=== PATIENT | female | born 1945 | race Hispanic/Latino ===

== ENCOUNTER 2018-01-12 18:32 | Inpatient (IN) | payer OTHER, MEDICARE ==
[~2018-01-12] VITALS: Ht 154.9 cm; Wt 75.2 kg
[2018-01-12] MEDS ORDERED: EPINEPHRINE 1 MG/ML AMPULE ONE ×2 (18:38→18:41)
[2018-01-12] MEDS ORDERED: METHYLPREDNISOLONE SOD SUCC 125MG/2ML VIAL ONE (18:42)
[2018-01-12 18:52] LABS: BASOPHILS % (AUTO) 0.4 % (0.0-5.0); EOSINOPHILS % (AUTO) 0.9 % (0.0-8.0); HEMATOCRIT 43.3 % (36-48); LYMPHOCYTES % (AUTO) 19.9 % (21.0-51.0); MEAN CORPUSCULAR HEMOGLOBIN 31.7 pg (27.0-33.0); MEAN CORPUSCULAR HGB CONC 34.1 g/dL (32.0-36.0); MONOCYTES % (AUTO) 3.2 % (3.0-13.0); NEUTROPHILS % (AUTO) 75.6 % (40.0-77.0); PLATELET COUNT (AUTO) 329 K/uL (130-400); RED BLOOD CELL COUNT(AUTO) 4.66 MIL/uL (4.00-5.50); RED CELL DISTRIBUTION WIDTH 14.1 % (11.0-15.5); WHITE BLOOD COUNT (AUTO) 11.7 K/uL (4.8-10.8)
[2018-01-12 19:07] LABS: CARBON DIOXIDE 24 mmol/L (21-32); CHLORIDE 101 mmol/L (101-111); CREATININE 1.2 mg/dL (0.5-1.5); GLOMERULAR FILTR. RATE CALC 47 mL/min (>60); GLUCOSE,RANDOM 122 mg/dL (70-105); POTASSIUM 4.2 mmol/L (3.5-5.1); SODIUM SERUM 137 mmol/L (136-145); UREA NITROGEN, BLOOD 22 mg/dL (7-18)
[2018-01-12 19:22] LABS: ALANINE AMINOTRANSFERASE 21 U/L (12-78); ALBUMIN 3.7 g/dL (3.5-5.0); ASPARTATE AMINOTRANSFERASE 28 U/L (10-37); BILIRUBIN,TOTAL 0.7 mg/dL (0.2-1.0); CREATINE KINASE MB 1.3 ng/mL (0.5-3.6); MYOGLOBIN 37 ng/mL (10-92); TOTAL PROTEIN, SERUM 7.2 g/dL (6.0-8.3); TROPONIN I < 0.04 ng/mL (0.00-0.06)
[2018-01-12 19:31] LABS: CREATINE KINASE, TOTAL 432 U/L (21-232)
[2018-01-12 19:35] LABS: INR 0.95 (0.85-1.15); PARTIAL THROMBOPLASTIN TIME 21.7 SEC (26.3-35.5)
[2018-01-12 19:42] LABS: APPEARANCE,URINE CLEAR (CLEAR); BILIRUBIN,URINE NEGATIVE (NEGATIVE); COLOR,URINE YELLOW (YELLOW); GLUCOSE, URINE (UA) NEGATIVE (NEGATIVE); KETONES,URINE 5 mg/dL (NEGATIVE); LEUKOCYTE ESTERASE ,URINE NEGATIVE (NEGATIVE); NITRATE,URINE NEGATIVE (NEGATIVE); OCCULT BLOOD,URINE NEGATIVE (NEGATIVE); PH,URINE 5.5 (5.0-8.0); PROTEIN,URINE NEGATIVE (NEGATIVE); UROBILINOGEN,URINE 0.2 mg/dL (0.2-1.0)
[2018-01-12] MEDS ORDERED: HYDROXYZINE HCL 25 MG TABLET ONE (19:58)
[2018-01-12 20:03] LABS: RAPID GROUP A STREP NEGATIVE (NEGATIVE)
[2018-01-12] MEDS ORDERED: FAMOTIDINE/PF 20 MG/2 ML VIAL IV ONE (21:03)
[2018-01-12 22:35] VITALS: BP 147/71
[2018-01-12] MEDS ORDERED: CALC-1105 PO (22:44)
[2018-01-12] MEDS ORDERED: LISI10TA7 PO (22:44)
[2018-01-12] MEDS ORDERED: OXYB5TAB10 PO (22:44)
[2018-01-12] MEDS ORDERED: CALC-21 PO (22:44)
[2018-01-12] MEDS ORDERED: ASPI-555 PO (22:44)
[2018-01-12] MEDS ORDERED: CEPH500C2 PO (22:48)
[2018-01-12] MEDS ORDERED: SULF1TAB89 PO (22:48)
[2018-01-12] MEDS ORDERED: METF500T6 PO (23:21)
[2018-01-12] MEDS ORDERED: ATOR40TA69 PO (23:21)
[2018-01-12] MEDS ORDERED: PANT40TA25 PO (23:21)
[2018-01-13 03:55] VITALS: BP 126/62
[2018-01-13] MEDS ORDERED: SODIUM CHLORIDE 0.9% 1000ML 1,000 ML IV SCH (04:15)
[2018-01-13] MEDS ORDERED: ONDANSETRON HCL MDV 20ML 2 MG/ML VIAL IVP PRN (04:15)
[2018-01-13] MEDS ORDERED: GLUCAGON 1MG KIT 1 MG ML IM PRN (04:15)
[2018-01-13] MEDS ORDERED: DEXTROSE 50%-WATER 50 ML DISP.SYRIN IV PRN (04:15)
[2018-01-13 05:08] LABS: BASOPHILS % (AUTO) 0.2 % (0.0-5.0); EOSINOPHILS % (AUTO) 0.1 % (0.0-8.0); HEMATOCRIT 35.5 % (36-48); LYMPHOCYTES % (AUTO) 11.2 % (21.0-51.0); MEAN CORPUSCULAR HEMOGLOBIN 32.9 pg (27.0-33.0); MEAN CORPUSCULAR HGB CONC 34.7 g/dL (32.0-36.0); MEAN CORPUSCULAR VOLUME 94.6 fL (79-99); MONOCYTES % (AUTO) 0.8 % (3.0-13.0); NEUTROPHILS % (AUTO) 87.7 % (40.0-77.0); PLATELET COUNT (AUTO) 279 K/uL (130-400); RED BLOOD CELL COUNT(AUTO) 3.76 MIL/uL (4.00-5.50); RED CELL DISTRIBUTION WIDTH 14.3 % (11.0-15.5); WHITE BLOOD COUNT (AUTO) 9.4 K/uL (4.8-10.8)
[2018-01-13 05:23] LABS: ALBUMIN 2.9 g/dL (3.5-5.0); BILIRUBIN,TOTAL 0.8 mg/dL (0.2-1.0); CREATININE 0.8 mg/dL (0.5-1.5); POTASSIUM 4.3 mmol/L (3.5-5.1); TOTAL PROTEIN, SERUM 6.1 g/dL (6.0-8.3)
[2018-01-13] MEDS: INSULIN R PO SS1 SQ SCH ×4 (06:11→21:00)
[2018-01-13] MEDS: PANTOPRAZOLE SODIUM 40 MG TABLET.DR PO SCH (06:18)
[2018-01-13] MEDS ORDERED: PNEUMOCOCCAL VACCINE POLYVALENT 0.5 ML/VIAL [PPV] IM SCH (07:00)
[2018-01-13] MEDS: METFORMIN HCL 500 MG TABLET PO SCH (08:00)
[2018-01-13 08:05] VITALS: BP 121/66
[2018-01-13] MEDS ORDERED: SULFAMETHOX-TMP DS 800/160 TAB PO SCH (09:00)
[2018-01-13] MEDS: ASPIRIN 81 MG EC TAB PO SCH (10:22)
[2018-01-13] MEDS: CALCIUM 600 + VITAMIN D 400 TABLET PO SCH (10:22)
[2018-01-13] MEDS: OXYBUTYNIN CHLORIDE 5 MG TABLET PO SCH ×2 (10:23→21:24)
[2018-01-13] MEDS: LISINOPRIL 10 MG TABLET PO SCH (10:24)
[2018-01-13 11:56] VITALS: BP 124/71
[2018-01-13 16:23] VITALS: BP 117/70
[2018-01-13 19:00] VITALS: BP 130/66
[2018-01-13] MEDS ORDERED: DIPHENHYDRAMINE HCL 25 MG CAPSULE PO PRN (22:15)
[2018-01-13 23:00] VITALS: BP 127/78
[2018-01-14 03:00] VITALS: BP 104/59
[2018-01-14] MEDS: INSULIN R PO SS1 SQ SCH ×4 (06:32→20:54)
[2018-01-14] MEDS: PANTOPRAZOLE SODIUM 40 MG TABLET.DR PO SCH (06:44)
[2018-01-14 07:00] VITALS: BP 122/69
[2018-01-14] MEDS: METFORMIN HCL 500 MG TABLET PO SCH (08:34)
[2018-01-14] MEDS: METHYLPREDNISOLONE SOD SUCC 125MG/2ML VIAL IVP SCH ×2 (08:34→17:05)
[2018-01-14] MEDS: ASPIRIN 81 MG EC TAB PO SCH (08:34)
[2018-01-14] MEDS: CALCIUM 600 + VITAMIN D 400 TABLET PO SCH (08:34)
[2018-01-14] MEDS: DiphenhydrAMINE HCL 50 MG/ML VIAL IV PRN ×2 (08:34→17:05)
[2018-01-14] MEDS: OXYBUTYNIN CHLORIDE 5 MG TABLET PO SCH ×2 (08:35→20:54)
[2018-01-14] MEDS: LISINOPRIL 10 MG TABLET PO SCH (08:35)
[2018-01-14 11:00] VITALS: BP 114/66
[2018-01-14 15:48] VITALS: BP 123/67
[2018-01-14 20:00] VITALS: BP 136/75
[2018-01-14] MEDS ORDERED: METHYLPREDNISOLONE SOD SUCC 125MG/2ML VIAL IVP SCH (23:00)
[2018-01-14] MEDS ORDERED: DiphenhydrAMINE HCL 50 MG/ML VIAL IV SCH (23:00)
[2018-01-15] VITALS: BP 122/72
[2018-01-15 04:00] VITALS: BP 126/68
[2018-01-15] MEDS: INSULIN R PO SS1 SQ SCH (06:50)
[2018-01-15] MEDS: PANTOPRAZOLE SODIUM 40 MG TABLET.DR PO SCH (06:51)
[2018-01-15 08:00] VITALS: BP 142/73
[2018-01-15] MEDS: METFORMIN HCL 500 MG TABLET PO SCH (08:52)
[2018-01-15] MEDS: LISINOPRIL 10 MG TABLET PO SCH (08:52)
[2018-01-15] MEDS: ASPIRIN 81 MG EC TAB PO SCH (08:52)
[2018-01-15] MEDS: OXYBUTYNIN CHLORIDE 5 MG TABLET PO SCH (08:52)
[2018-01-15] MEDS: CALCIUM 600 + VITAMIN D 400 TABLET PO SCH (08:52)
[2018-01-15 10:57] VITALS: BP 137/71
== END 2018-01-15 11:40 | disposition home or self-care (01) | DRG 607 ==
LOC: EDH 18:32 → OBSVTOIN 20:31 → EDHIP 20:31 → 3BH 21:46
PROVIDERS: ADMIT Internal Medicine Nephrology; ATTEND Internal Medicine Nephrology
DX: L50.0 Allergic urticaria (principal); M62.82 Rhabdomyolysis; E11.9 Type 2 diabetes mellitus without complications; E86.0 Dehydration; E78.5 Hyperlipidemia, unspecified; I10 Essential (primary) hypertension; Z79.84 Long term (current) use of oral hypoglycemic drugs; I25.10 Atherosclerotic heart disease of native coronary artery without angina pectoris; L50.9 Urticaria, unspecified; Z86.73 Personal history of transient ischemic attack (TIA), and cerebral infarction without residual deficits; R55 Syncope and collapse; T78.1XXA Other adverse food reactions, not elsewhere classified, initial encounter
CPT/HCPCS: 36415; 71045; 80053; 81003; 82550; 82553; 82948; 83605; 83874; 84484; 85025; 85610; 85730; 87040; 87088; 87804; 87880; 93005; J0171; J1200; J2930; J3490; J7030; Q0163

== ENCOUNTER 2019-10-19 09:37 | Inpatient (IN) | payer OTHER, MEDICARE ==
[~2019-10-19] VITALS: Ht 157.5 cm; Wt 75.7 kg
[~2019-10-19 09:37] MED LIST: ASPI-555 PO; ATOR40TA69 PO; CALC-1105 PO; CALC-21 PO; CEPH500C2 PO; LISI10TA7 PO; METF-444 PO; OXYB5TAB15 PO; PANT40TA25 PO
[2019-10-19] MEDS ORDERED: ACETAMINOPHEN EXTRA STRENGTH 500 MG TABLET ONE ×2 (10:18→10:22)
[2019-10-19] MEDS ORDERED: ONDANSETRON HCL 4 MG/2 ML VIAL ONE ×2 (10:18→10:21)
[2019-10-19] MEDS ORDERED: CEFTRIAXONE SODIUM 2 GM VIAL ONE (10:21)
[2019-10-19] MEDS ORDERED: SODIUM CHLORIDE 0.9% 1000ML 2,000 ML IV ONE (10:22)
[2019-10-19] MEDS ORDERED: SODIUM CHLORIDE 0.9% 250 ML IV ONE (10:23)
[2019-10-19 10:29] LABS: BASOPHILS % (AUTO) 0.4 % (0.0-5.0); EOSINOPHILS % (AUTO) 0.1 % (0.0-8.0); LYMPHOCYTES % (AUTO) 10.5 % (21.0-51.0); MEAN CORPUSCULAR HEMOGLOBIN 30.4 pg (27.0-33.0); MEAN CORPUSCULAR HGB CONC 32.4 g/dL (32.0-36.0); MEAN CORPUSCULAR VOLUME 93.8 fL (79-99); MONOCYTES % (AUTO) 4.9 % (3.0-13.0); NEUTROPHILS % (AUTO) 83.7 % (40.0-77.0); PLATELET COUNT (AUTO) 234 K/uL (130-400); RED BLOOD CELL COUNT(AUTO) 4.37 MIL/uL (4.00-5.50); RED CELL DISTRIBUTION WIDTH 13.2 % (11.0-15.5); WHITE BLOOD COUNT (AUTO) 10.4 K/uL (4.8-10.8)
[2019-10-19 10:46] LABS: ALANINE AMINOTRANSFERASE 27 U/L (12-78); ALBUMIN 3.4 g/dL (3.5-5.0); ASPARTATE AMINOTRANSFERASE 26 U/L (10-37); CARBON DIOXIDE 29 mmol/L (21-32); CHLORIDE 99 mmol/L (101-111); CREATINE KINASE, TOTAL 164 U/L (21-232); CREATININE 0.8 mg/dL (0.5-1.5); GLOMERULAR FILTR. RATE CALC 74 mL/min (>60); GLUCOSE,RANDOM 142 mg/dL (70-105); MYOGLOBIN 87 ng/mL (10-92); POTASSIUM 3.6 mmol/L (3.5-5.1); SODIUM SERUM 135 mmol/L (136-145); TOTAL PROTEIN, SERUM 7.7 g/dL (6.0-8.3); TROPONIN I < 0.04 ng/mL (0.00-0.06); UREA NITROGEN, BLOOD 10 mg/dL (7-18)
[2019-10-19 11:07] LABS: INR 1.01 (0.85-1.15); PARTIAL THROMBOPLASTIN TIME 26.4 SEC (26.3-35.5); PROTHROMBIN TIME 10.6 SEC (9.6-11.6)
[2019-10-19 12:47] LABS: APPEARANCE,URINE Clear (CLEAR); BILIRUBIN,URINE Negative (NEGATIVE); COLOR,URINE Yellow (YELLOW); GLUCOSE, URINE (UA) Negative (NEGATIVE); KETONES,URINE Negative (NEGATIVE); LEUKOCYTE ESTERASE ,URINE Negative (NEGATIVE); NITRATE,URINE Negative (NEGATIVE); OCCULT BLOOD,URINE Negative (NEGATIVE); PH,URINE 6.5 (5.0-8.0); PROTEIN,URINE Trace mg/dL (NEGATIVE); UROBILINOGEN,URINE 0.2 mg/dL (0.2-1.0)
[2019-10-19 12:57] LABS: BACTERIA,URINE None Seen /HPF (None Seen); RBC,URINE 0-1 /HPF (0-1); SQUAMOUS EPITHELIAL CELL,UR 0-2 /HPF (0-2); WBC,URINE 0-1 /HPF (0-1)
[2019-10-19] MEDS ORDERED: DEXTROSE 50%-WATER 50 ML DISP.SYRIN IV PRN (14:00)
[2019-10-19] MEDS ORDERED: GLUCAGON 1MG KIT 1 MG ML IM PRN (14:00)
[2019-10-19] MEDS ORDERED: ONDANSETRON HCL 4 MG/2 ML VIAL IVP PRN (14:00)
[2019-10-19 15:45] VITALS: BP 120/60
[2019-10-19] MEDS: INSULIN R PO SS1 SQ SCH ×2 (16:30→20:42)
[2019-10-19] MEDS ORDERED: ALEN70TA10 PO (16:34)
[2019-10-19] MEDS ORDERED: ESCI20TA36 PO (16:34)
[2019-10-19] MEDS ORDERED: CYAN100084 PO (16:34)
[2019-10-19] MEDS ORDERED: MIRA25TA PO (16:34)
[2019-10-19] MEDS ORDERED: EZET10TA48 PO (16:34)
[2019-10-19] MEDS ORDERED: METF-444 PO (16:34)
[2019-10-19] MEDS ORDERED: ROSU40TA21 PO (16:34)
[2019-10-19 19:38] VITALS: BP 124/66
[2019-10-19] MEDS: OSELTAMIVIR PHOSPHATE 75 MG CAP PO SCH (21:21)
[2019-10-19 23:00] VITALS: BP 135/70
[2019-10-20 03:00] VITALS: BP 164/70
[2019-10-20] MEDS: ACETAMINOPHEN 325 MG TAB PO PRN ×3 (05:47→15:16)
[2019-10-20 06:13] LABS: BASOPHILS % (AUTO) 0.4 % (0.0-5.0); EOSINOPHILS % (AUTO) 0.3 % (0.0-8.0); HEMATOCRIT 35.7 % (36-48); LYMPHOCYTES % (AUTO) 17.8 % (21.0-51.0); MEAN CORPUSCULAR HEMOGLOBIN 30.2 pg (27.0-33.0); MEAN CORPUSCULAR HGB CONC 32.2 g/dL (32.0-36.0); MEAN CORPUSCULAR VOLUME 93.7 fL (79-99); MONOCYTES % (AUTO) 5.6 % (3.0-13.0); NEUTROPHILS % (AUTO) 75.2 % (40.0-77.0); PLATELET COUNT (AUTO) 183 K/uL (130-400); RED BLOOD CELL COUNT(AUTO) 3.81 MIL/uL (4.00-5.50); RED CELL DISTRIBUTION WIDTH 13.3 % (11.0-15.5); WHITE BLOOD COUNT (AUTO) 9.1 K/uL (4.8-10.8)
[2019-10-20] MEDS: INSULIN R PO SS1 SQ SCH ×4 (06:28→20:46)
[2019-10-20 06:30] LABS: CREATININE 0.8 mg/dL (0.5-1.5); MAGNESIUM 1.9 mg/dL (1.80-2.40); POTASSIUM 3.2 mmol/L (3.5-5.1)
[2019-10-20 08:00] VITALS: BP 115/69
[2019-10-20] MEDS: CEFTRIAXONE SODIUM 1 GM IVP SCH (09:02)
[2019-10-20] MEDS: OSELTAMIVIR PHOSPHATE 75 MG CAP PO SCH ×2 (09:02→20:46)
[2019-10-20 11:43] VITALS: BP 120/61
[2019-10-20] MEDS ORDERED: PHARMACY COMMUNICATION MISC SCH (14:45)
[2019-10-20] MEDS: DOXYCYCLINE HYCLATE 100 MG TABLET PO SCH (15:13)
[2019-10-20 16:00] VITALS: BP 117/53
--- NOTE | 2019-10-20 16:46 | NUR ---
INITIAL Patient lives with son. Emergency contact is brother, Lambert Sorensen, [phone]. No home services. DME: walker with seat, BPM, glucometer (no insulin). Patient is able to complete ADL's independently and drives. PCP is Dr. Pawan Robles. Pharmacy is [facility] located in [place]. DCP is home. Addendum: 10/20/19 at 1648 by BELLE BRIDGES SS Amended: Links added.
[2019-10-20 19:30] VITALS: BP 112/65
[2019-10-20 23:44] VITALS: BP 127/76
[2019-10-21] MEDS: DOXYCYCLINE HYCLATE 100 MG TABLET PO SCH ×2 (02:49→14:15)
[2019-10-21 03:30] VITALS: BP 157/79
[2019-10-21] MEDS: INSULIN R PO SS1 SQ SCH ×4 (05:33→21:00)
[2019-10-21 08:00] VITALS: BP 142/77
[2019-10-21] MEDS: CYANOCOBALAMIN (VITAMIN B-12) 1,000 MCG TABLET PO SCH (08:19)
[2019-10-21] MEDS: CEFTRIAXONE SODIUM 1 GM IVP SCH (08:19)
[2019-10-21] MEDS: LISINOPRIL 10 MG TABLET PO SCH (08:19)
[2019-10-21] MEDS: ASPIRIN 81MG TAB.CHEW PO SCH (08:19)
[2019-10-21] MEDS: PANTOPRAZOLE SODIUM 40 MG TABLET.DR PO SCH (08:19)
[2019-10-21] MEDS: OSELTAMIVIR PHOSPHATE 75 MG CAP PO SCH ×2 (08:19→19:50)
[2019-10-21] MEDS: EZETIMIBE 10 MG TAB PO SCH (08:19)
[2019-10-21 11:41] VITALS: BP 136/74
[2019-10-21 16:00] VITALS: BP 126/63
[2019-10-21 19:20] VITALS: BP 133/71
[2019-10-22 00:43] VITALS: BP 121/71
[2019-10-22] MEDS: DOXYCYCLINE HYCLATE 100 MG TABLET PO SCH ×2 (02:28→14:52)
[2019-10-22 03:28] VITALS: BP 121/63
[2019-10-22 05:19] LABS: HEMATOCRIT 33.5 % (36-48); MEAN CORPUSCULAR HGB CONC 31.9 g/dL (32.0-36.0); MEAN CORPUSCULAR VOLUME 93.8 fL (79-99); PLATELET COUNT (AUTO) 135 K/uL (130-400); RED BLOOD CELL COUNT(AUTO) 3.57 MIL/uL (4.00-5.50); RED CELL DISTRIBUTION WIDTH 12.9 % (11.0-15.5); WHITE BLOOD COUNT (AUTO) 5.4 K/uL (4.8-10.8)
[2019-10-22 05:40] LABS: ALBUMIN 2.6 g/dL (3.5-5.0); BILIRUBIN,TOTAL 0.6 mg/dL (0.2-1.0); CREATININE 0.7 mg/dL (0.5-1.5); MAGNESIUM 1.9 mg/dL (1.80-2.40); TOTAL PROTEIN, SERUM 6.4 g/dL (6.0-8.3)
--- NOTE | 2019-10-22 05:48 | NUR ---
Informed Dr. Arias regarding potassium level of 3.0. PO potassium protocol was ordered
[2019-10-22] MEDS ORDERED: POTASSIUM CHLORIDE 20MEQ/100ML 100 ML IV PRN (06:00)
[2019-10-22] MEDS ORDERED: POTASSIUM CHLORIDE 10% ELIXIR 20 MEQ/15 ML UDCUP PO PRN (06:00)
[2019-10-22] MEDS ORDERED: LIDOCAINE HCL-MPF 1% 2ML VIAL IV PRN (06:00)
[2019-10-22] MEDS: POTASSIUM CHLORIDE 20 MEQ ERTAB PO PRN ×4 (06:27→11:17)
[2019-10-22] MEDS: INSULIN R PO SS1 SQ SCH ×2 (06:55→11:30)
[2019-10-22 08:00] VITALS: BP 157/82
[2019-10-22] MEDS: CEFTRIAXONE SODIUM 1 GM IVP SCH (09:33)
[2019-10-22] MEDS: OSELTAMIVIR PHOSPHATE 75 MG CAP PO SCH (09:34)
[2019-10-22] MEDS: CYANOCOBALAMIN (VITAMIN B-12) 1,000 MCG TABLET PO SCH (09:34)
[2019-10-22] MEDS: LISINOPRIL 10 MG TABLET PO SCH (09:34)
[2019-10-22] MEDS: PANTOPRAZOLE SODIUM 40 MG TABLET.DR PO SCH (09:34)
[2019-10-22] MEDS: EZETIMIBE 10 MG TAB PO SCH (09:34)
[2019-10-22] MEDS: ASPIRIN 81MG TAB.CHEW PO SCH (09:34)
[2019-10-22 11:21] VITALS: BP 130/77
[2019-10-22 11:25] VITALS: BP 139/89
[2019-10-22] MEDS ORDERED: SODIUM CHLORIDE 0.9% 250 ML IV ONE (11:38)
[2019-10-22] MEDS ORDERED: POTASSIUM CHLORIDE 10% ELIXIR 20 MEQ/15 ML UDCUP PO SCH (12:03)
--- NOTE | 2019-10-22 15:04 | NUR ---
[id number] patient signed IM Letter, I faxed IM Letter to [phone] and placed in chart under consent tab
[2019-10-22 15:48] VITALS: BP 144/82
[2019-10-22] MEDS ORDERED: LEVO500T89 PO (17:06)
[2019-10-22] MEDS ORDERED: OSEL75 PO (17:07)
--- NOTE | 2019-10-22 17:43 | NUR ---
Discharge instructions reviewed, medication schedule instructions provided and PIV to LH removed, bleeding controlled and dressing applied. Patient verbalized understanding of medication schedule, stating she would take prescription to [facility] in [place]. Verbalized understanding of follow up appointment scheduled with Pawan Robles MD for tomorrow at 9:30 am. Patient assisted to hospital entrance via wheelchair.
== END 2019-10-22 17:39 | disposition home or self-care (01) | DRG 871 ==
LOC: EDH 09:37 → EDHIP 13:48 → 4DH 15:43
PROVIDERS: ADMIT Internal Medicine Infectious Disease; ATTEND Internal Medicine Infectious Disease
DX: A41.9 Sepsis, unspecified organism (principal); J18.9 Pneumonia, unspecified organism; E03.9 Hypothyroidism, unspecified; E11.9 Type 2 diabetes mellitus without complications; E66.9 Obesity, unspecified; E78.5 Hyperlipidemia, unspecified; E87.6 Hypokalemia; I10 Essential (primary) hypertension; Z79.899 Other long term (current) drug therapy; Z68.30 Body mass index [BMI] 30.0-30.9, adult
CPT/HCPCS: 36415; 71045; 74176; 80048; 80053; 81001; 82550; 82948; 83605; 83735; 83874; 84132; 84145; 84484; 85025; 85027; 85610; 85730; 87040; 87077; 87088; 87186; 87804; 93005; G0378; J0696; J2405; J3480; J7030

== ENCOUNTER 2022-10-22 14:41 | Emergency (ER) | payer MEDICARE, OTHER ==
[~2022-10-22] VITALS: Ht 152.4 cm; Wt 68.0 kg
[~2022-10-22 14:41] MED LIST changes: +ALEN70TA80 PO; -ASPI-555 PO; +ASPI-556 PO; -ATOR40TA69 PO; -CALC-1105 PO; -CALC-21 PO; -CEPH500C2 PO; +CYAN100084 PO; +ESCI20TA38 PO; +EZET10TA48 PO; +LEVO-70 PO; +LISI10TA24 PO; -LISI10TA7 PO; +MIRA25TA PO; +OSEL75 PO; -OXYB5TAB15 PO; -PANT40TA25 PO; +PANT40TA54 PO; +ROSU40TA21 PO
[2022-10-22 15:10] LABS: BASOPHILS % (AUTO) 0.4 % (0.0-5.0); EOSINOPHILS % (AUTO) 1.4 % (0.0-8.0); HEMATOCRIT 40.4 % (36-48); LYMPHOCYTES % (AUTO) 26.2 % (21.0-51.0); MEAN CORPUSCULAR HEMOGLOBIN 31.2 pg (27.0-33.0); MEAN CORPUSCULAR HGB CONC 33.2 g/dL (32.0-36.0); MEAN CORPUSCULAR VOLUME 94.2 fL (79-99); MONOCYTES % (AUTO) 7.4 % (3.0-13.0); NEUTROPHILS % (AUTO) 64.3 % (40.0-77.0); PLATELET COUNT (AUTO) 295 K/uL (130-400); RED BLOOD CELL COUNT(AUTO) 4.29 MIL/uL (4.00-5.50); WHITE BLOOD COUNT (AUTO) 11.1 K/uL (4.8-10.8)
[2022-10-22 15:17] LABS: APPEARANCE,URINE CLEAR (CLEAR); BILIRUBIN,URINE NEGATIVE (NEGATIVE); COLOR,URINE YELLOW (YELLOW); GLUCOSE, URINE (UA) NEGATIVE (NEGATIVE); KETONES,URINE NEGATIVE (NEGATIVE); LEUKOCYTE ESTERASE ,URINE NEGATIVE Leu/uL (NEGATIVE); NITRATE,URINE NEGATIVE (NEGATIVE); OCCULT BLOOD,URINE NEGATIVE (NEGATIVE); PH,URINE 5.5 (5.0-8.0); PROTEIN,URINE 20 mg/dL (NEGATIVE); UROBILINOGEN,URINE 0.2 mg/dL (0.2-1.0)
[2022-10-22 15:25] LABS: CREATININE 0.9 mg/dL (0.5-1.5); POTASSIUM 3.6 mmol/L (3.5-5.1)
[2022-10-22 15:28] LABS: ALBUMIN 3.9 g/dL (3.5-5.0); TOTAL PROTEIN, SERUM 7.7 g/dL (6.0-8.3)
[2022-10-22 15:34] LABS: MUCUS,URINE RARE LPF (None Seen); RBC,URINE 0-1 /HPF (0-1); SQUAMOUS EPITHELIAL CELL,UR FEW /HPF (0-2); WBC,URINE 0-1 /HPF (0-1); YEAST,URINE BUDDING RARE /HPF (None Seen)
[2022-10-22] MEDS ORDERED: KETOROLAC 15MG/ML VIAL (15MG/ML) ONE (16:48)
[2022-10-22] MEDS ORDERED: LACT10SO5 PO (16:52)
[2022-10-22 16:53] VITALS: BP 119/59
[2022-10-22] MEDS ORDERED: NAPR375T6 PO (16:55)
[2022-10-22] MEDS ORDERED: KETOROLAC 15MG/ML VIAL (15MG/ML) IV ONE (17:00)
== END 2022-10-22 17:14 | disposition home or self-care (01) ==
LOC: EDH 14:41
DX: K59.00 Constipation, unspecified (principal); K43.9 Ventral hernia without obstruction or gangrene; R10.31 Right lower quadrant pain; R10.32 Left lower quadrant pain; I10 Essential (primary) hypertension; E78.00 Pure hypercholesterolemia, unspecified; E11.9 Type 2 diabetes mellitus without complications; Z90.710 Acquired absence of both cervix and uterus; Z79.899 Other long term (current) drug therapy
CPT/HCPCS: 99285; 74176; 96374; 80053; 83690; 85025; 81001; 36415; J1885